=== PATIENT | female | born 1995 | race Caucasian/White ===

== ENCOUNTER → 2017-02-08 | Outpatient (CLI) | payer BC ==
[~2017-02-08] MED LIST: FRRS300 PO; PRENTAB26 PO
[2017-02-11 23:54] LABS: CHLAMYDIA TRACH RNA*** NOT DETECTED (NOT DETECTED); GC (NEIS GONORRHOEAE)RNA** NOT DETECTED (NOT DETECTED)
== END | disposition home or self-care (01) ==
LOC: C.LABSPEC 17:35
PROVIDERS: ATTEND Obstetrics & Gynecology
DX: Z01.419 Encounter for gynecological examination (general) (routine) without abnormal findings (principal)

== ENCOUNTER → 2017-09-25 | Outpatient (CLI) | payer BC ==
[2017-09-25 14:28] LABS: BASO % 0.2 %; BASO ABS # 0.01 K/uL (0-0.2); COMPLETE YES; EOS % 0.7 %; HEMATOCRIT 35.8 % (37-47); IG% 0.2 %; LYMPH % 29.8 %; MEAN CELL VOLUME 86.9 fL (80-100); MEAN CORPUSCULAR HEMOGLOBIN 28.4 pg (25-34); MEAN CORPUSCULAR HGB CONC 32.7 g/dl (32-36); MEAN PLATELET VOLUME 11.4 fL (7.4-10.4); MONO % 6.3 %; NEUT % 62.8 %; PLATELET COUNT 163 K/uL (130-400); RED BLOOD COUNT 4.12 M/uL (4.2-5.4)
[2017-09-25 18:14] LABS: URINE APPEARANCE CLOUDY (CLEAR); URINE BILIRUBIN NEG (NEG); URINE COLOR YELLOW; URINE EPITHELIAL CELL AUTO 20-30 /lpf (0-5); URINE NITRITE NEG (NEG); URINE PH 7.5 (4.5-7.5); URINE SPECIFIC GRAVITY 1.014 (1.000-1.030); UROBILINOGEN NEG (NEG)
[2017-09-25 18:15] LABS: MANUAL MICROSCOPIC REQUIRED? NO; REVIEW REQ? NO
[2017-09-28 01:17] LABS: CHLAMYDIA TRACH RNA*** NOT DETECTED (NOT DETECTED); GC (NEIS GONORRHOEAE)RNA** NOT DETECTED (NOT DETECTED)
== END | disposition home or self-care (01) ==
LOC: C.LAB1850 12:38
PROVIDERS: ATTEND Obstetrics & Gynecology
DX: Z34.81 Encounter for supervision of other normal pregnancy, first trimester (principal)

== ENCOUNTER → 2017-11-11 | Outpatient (CLI) | payer BC | END | disposition home or self-care (01) | LOC: C.LAB1850 13:08 | PROVIDERS: ATTEND Obstetrics & Gynecology | DX: Z34.82 Encounter for supervision of other normal pregnancy, second trimester (principal) ==

== ENCOUNTER → 2017-11-21 | Outpatient (CLI) | payer BC | END | disposition home or self-care (01) | LOC: C.LAB1850 08:59 | PROVIDERS: ATTEND Obstetrics & Gynecology | DX: O28.1 Abnormal biochemical finding on antenatal screening of mother (principal); Z3A.00 Weeks of gestation of pregnancy not specified ==

== ENCOUNTER → 2018-02-05 | Outpatient (CLI) | payer BC ==
[2018-02-05 09:35] LABS: HEMATOCRIT 28.9 % (37-47); HEMOGLOBIN 9.8 g/dL (12.0-16.0)
== END | disposition home or self-care (01) ==
LOC: C.LAB1850 08:13
PROVIDERS: ATTEND Obstetrics & Gynecology
DX: Z34.83 Encounter for supervision of other normal pregnancy, third trimester (principal)

== ENCOUNTER → 2018-06-17 | Outpatient (CLI) | payer BC | END | disposition home or self-care (01) | LOC: C.PAPS 16:16 | PROVIDERS: ATTEND Obstetrics & Gynecology | DX: Z01.419 Encounter for gynecological examination (general) (routine) without abnormal findings (principal) ==

== ENCOUNTER 2022-08-24 07:36 | Inpatient (IN) ==
--- NOTE | 2022-08-24 07:46 | History & Physical Report ---
Date of Service August 24, 2022 Assessment & Plan (1) with 41 completed weeks gestation: Plan: Admit for IOL secondary to post dates. Miranda bulb placed last night and has fallen out. Epidural as desired. (2) Encounter for induction of labor: Admission and Anticipated Discharge Date Admission Date: August 24, 2022 History of Present Illness Chief Complaint: IOL Primary Care Provider: NO PCP Analisa is a 27 y/o female currently at 41 1/7 WGA with an AMANUEL 08/16/22 as determined by Ultrasound who is here for induction for post dates. Her was complicated by LGSIL on pap, colpo was done and was negative. Miranda bulb placed last night and has fallen out. Irregular contractions; + movement; no fluid loss; no bloody show External FHT and external uterine monitors used; Category 1 tracing; moderate FHT variability. Had regular appointments with OB. Labs: (01/04/22) Blood type: O+ Antibody screen: Negative H.8 (today) Hct: 34.5 (today) WBC: 6.65 (today) Plt: 118 (today) Rubella: Immune VDRL/RPR: nonreactive Gonorrhea: Neg Chlamydia: Neg HIV: Neg HbSAg: Neg GBS: Neg Other screens: Declines cf/sma--mln Declines cfdna--mln Allergies Allergy/AdvReac Type Severity Reaction Status Date / Time grape Allergy Mild HIVES Verified 08/23/22 10:01 nitrofurantoin AdvReac Mild Rash Verified 08/23/22 10:01 Home Medications Medication Instructions Recorded Confirmed Type [id number] 3-fat com #1 27 cap PO 12/29/21 08/23/22 History mg-1 mg-300 mg capsule Patient History Medical History 6 weeks follow-up Cervical cancer screening Encounter for contraceptive management Galactorrhea not associated with childbirth History of varicella Ingrown toenail Intrauterine (08/08/11) 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 Surgical History No history of previous surgery Family History Grandmother (Paternal) Breast cancer Father Hypertension Denies family history of Ovarian cancer Colorectal cancer Social History Smoking Status: Never smoker Second Hand Exposure: No; Hx Alcohol Use: No Hx Substance Use: No Preferred Language: Bangladeshi Communication Ability: Effective 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 Denies breast pain. Denies dysuria. Denies headache or changes in vision. Physical Exam Physical Exam: General: Alert, oriented. No acute distress. Cardiac: Regular rate and rhythm, no murmurs/rubs/gallops. Respiratory: Clear to auscultation bilaterally a/p, no wheezes/rales/rhonchi. No increased work of breathing. Symmetrical chest rise. No respiratory distress. Abdomen: Gravid Pelvic: Dilation 4 1/2 cm; Effacement 75; Station -[address] Espinosa. Lower Extremities: No lower extremity edema or swelling. No deep calf pain. Laura's negative bilaterally Supervising Physician Co-Signing Physician Notes Resident Physician Supervision Note: I was present with Dr. Mitchell during the history and exam. I discussed the case with the resident and agree with the findings and plan as documented in the note. Any exceptions or clarifications are listed here: Patient her for po stdates induction. . Had miranda overnight. Cx 4.5cm per vern. fhts categ1. pitocin infusion, arom by me, clear fluid, cx unchanged. epidural when desires. Documented By: Kelsi Lange MD, FACOG
[2022-08-24] MEDS ORDERED: LIDOCAINE 1% LOCAL 20 ML VIAL INFIL PRN (07:47)
[2022-08-24] MEDS ORDERED: OXYTOCIN 30 UNITS/500 ML BAG IV PRN ×3 (07:47→14:30)
[2022-08-24 08:09] LABS: Hematocrit (blood only) 34.5 % (34.1-44.9); Hemoglobin 11.8 g/dl (12.0-16.0); Mean Corpuscular Hemoglobin 30.2 pg (25.0-34.0); Mean Corpuscular Hgb Conc 34.2 g/dL (32.0-36.0); Mean Corpuscular Volume 88.2 fL (80.0-100.0); Mean Platelet Volume 12.6 fL (9.4-12.3); Platelet Count 118 K/uL (130-400); RDW Coefficient of Variation 13.5 % (11.5-14.5); RDW Standard Deviation 43.1 fL (36.4-46.3); Red Blood Count 3.91 M/uL (3.93-5.22); White Blood Count 6.65 K/ul (4.8-10.8)
[2022-08-24] MEDS: LACTATED RINGER'S 1,000 ML IV PRN ×2 (08:30→11:55)
[2022-08-24] MEDS ORDERED: ePHEDrine sulfate 50 MG/ML AMP ONE (11:14)
[2022-08-24] MEDS ORDERED: fentaNYL 2MCG/ML ROPIVACAINE 1.25MG/ML 100 ML BAG EPI ONE (11:15)
[2022-08-24] MEDS ORDERED: fentaNYL citrate 100 MCG/2 ML VIAL ONE ×2 (11:15→14:19)
[2022-08-24] MEDS ORDERED: LIDOCAINE 2%/EPINEPHRINE 1:200,000 20 ML SDV ONE (11:15)
[2022-08-24] MEDS ORDERED: SODIUM CHLORIDE 0.9% INJ 10 ML VIAL ONE (11:15)
[2022-08-24] MEDS ORDERED: BUPIVACAINE 0.25% 30 ML VIAL ONE (11:15)
--- NOTE | 2022-08-24 12:18 | Anesthesiology Consultation ---
Date of Service August 24, 2022 Assessment & Plan Chart Review Chart Review: Acceptable Risk for Labor Epidural Consults Requested none History Height/Weight Height: 5 ft 3 in Weight: 67.132 kg Allergies Allergy/AdvReac Type Severity Reaction Status Date / Time grape Allergy Mild HIVES Verified 08/23/22 10:01 nitrofurantoin AdvReac Mild Rash Verified 08/23/22 10:01 Medications Home Medications Medication Instructions Recorded Confirmed Last Taken [id number] 3-fat com #1 27 cap PO 12/29/21 08/23/22 08/24/22 mg-1 mg-300 mg capsule Active Medications Generic Name Dose Route Start Last Admin Trade Name Freq PRN Reason Stop Dose Admin Oxytocin 30 units in 500 mls @ 7 mls/hr 08/24/22 07:48 08/24/22 10:51 Pitocin IV 08/26/22 07:47 0.42 units/hr .Q24H PRN 7 mls/hr Labor Induction/Augmentation Titration Protocol 0.42 UNITS/HR Lactated Ringer's 1,000 mls @ 125 mls/hr 08/24/22 07:47 08/24/22 11:55 Lr IV 08/26/22 07:46 125 mls/hr .Q8H PRN Administration L&D Protocol Protocol Past Medical History Medical History 6 weeks follow-up Cervical cancer screening Encounter for contraceptive management Galactorrhea not associated with childbirth History of varicella Ingrown toenail Intrauterine (08/08/11) 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
[2022-08-24] MEDS ORDERED: NALOXONE HCL 1 MG in SODIUM CHLORIDE 0.9% 1000ML 1,000 ML IV PRN (12:21)
[2022-08-24] MEDS ORDERED: NALBUPHINE HCL INJ 10 MG/ML AMP IV PRN (12:21)
[2022-08-24] MEDS ORDERED: ePHEDrine sulfate 50 MG/ML AMP IV PRN (12:21)
[2022-08-24] MEDS ORDERED: diphenhydrAMINE 50 MG/ML VIAL IV PRN (12:21)
[2022-08-24] MEDS ORDERED: NALOXONE HCL 0.4 MG/1 ML VIAL/CARP IV PRN (12:21)
[2022-08-24] MEDS ORDERED: fentaNYL 2MCG/ML ROPIVACAINE 1.25MG/ML 100 ML BAG EPI PRN (12:21)
--- NOTE | 2022-08-24 12:47 | Labor Progress Brief Note ---
Date of Service August 24, 2022 Subjective some pressure, feels less now with epidural Assessment & Plan (1) Encounter for induction of labor: (2) with 41 completed weeks gestation: Plan good cx change. c/w pit. fhts categ 2. spont accels. Admission and Anticipated Discharge Date Admission Date: August 24, 2022 Physical Exam Constitutional: WD/WN, vitals as above Genitourinary: Manual OB Exam: + cervical dilation 7 cm, + cervical effacement 100% and + station 0 OB Exam Monitor Tracing: + external FHT monitor used, + external uterine monitor used (q2), + category II, + normal FHT variability and + variable decelerations Results & Data ([facility]) Vital Signs (Past 12 Hours) Vital Signs Temp Pulse Resp BP Pulse Ox 08/24/22 08:03 97.5 F L 71 16 124/84 08/24/22 12:41 61 08/24/22 12:41 108/70 08/24/22 12:37 100 08/24/22 12:37 67 08/24/22 12:38 61 08/24/22 12:38 121/73 08/24/22 12:32 100 08/24/22 12:32 58 L 08/24/22 12:32 113/68 08/24/22 12:27 100 08/24/22 12:27 66 08/24/22 12:26 71 08/24/22 12:26 115/65 08/24/22 12:23 67 08/24/22 12:23 103/67 08/24/22 12:22 100 08/24/22 12:22 66 08/24/22 12:22 69 08/24/22 12:22 111/68 08/24/22 12:19 64 08/24/22 12:19 107/67 08/24/22 12:17 100 08/24/22 12:17 75 08/24/22 12:17 105/66 08/24/22 12:15 67 08/24/22 12:15 111/66 08/24/22 12:13 66 08/24/22 12:13 112/68 08/24/22 12:12 100 08/24/22 12:12 68 08/24/22 12:11 68 08/24/22 12:11 115/69 08/24/22 12:10 82 08/24/22 12:10 116/64 08/24/22 12:09 92 08/24/22 12:09 86 08/24/22 12:07 97 08/24/22 12:07 79 08/24/22 12:06 65 08/24/22 12:06 133/69 08/24/22 12:04 71 08/24/22 12:04 141/71 H 08/24/22 12:02 100 08/24/22 12:02 69 08/24/22 12:02 71 08/24/22 12:02 135/77 08/24/22 12:00 71 08/24/22 12:00 148/79 H 08/24/22 11:57 100 08/24/22 11:57 67 08/24/22 11:52 100 08/24/22 11:52 72 08/24/22 11:47 100 08/24/22 11:47 68 08/24/22 11:42 100 08/24/22 11:42 63 08/24/22 11:37 100 08/24/22 11:37 70 08/24/22 11:32 100 08/24/22 11:32 65 08/24/22 11:27 100 08/24/22 11:27 63 08/24/22 11:22 100 08/24/22 11:22 64 08/24/22 11:17 100 08/24/22 11:17 61 08/24/22 11:16 67 08/24/22 11:16 137/92 08/24/22 07:53 71 124/84 Coding Level of Care Code None Diagnoses Encounter for induction of labor Z34.90 with 41 completed weeks gestation O48.0; Z3A.41
--- NOTE | 2022-08-24 13:16 | Delivery Summary ---
Vaginal Delivery Summary Date of Service August 24, 2022 Vaginal Delivery Summary The patient dilated to complete and pushed to deliver a viable female infant Apgars 9 and 9 via over intact perineum. Mouth and nose bulb suctioned at perineum. Loose nuchal x 1 reduced. Shoulders and body delivered with ease. was vigorous and crying at . Cord clamped at 30 seconds of life and infant to maternal abdomen where the cord was then doubly clamped and cut. Placenta delivered spontaneously and intact, three-vessel cord. Hemostasis achieved with dilute pitocin and uterine massage. Cervix and sulci intact. EBL 300 cc. Mother and baby stable in recovery. [facility] Vaginal Delivery Charge Delivery Type Details:
--- NOTE | 2022-08-24 14:28 | Anesthesia Procedure Note ---
Date of Service August 24, 2022 Anesthesia Post Epidural Note Vital Signs Vital Signs: Temp Pulse Resp BP Pulse Ox 36.6 C 62 16 137/84 100 08/24/22 12:42 08/24/22 14:12 08/24/22 08:03 08/24/22 14:12 08/24/22 13:07 Pain Intensity Lower Medial Abdomen: Pain Intensity: 5 Notes Mental Status: alert / awake / arousable Nausea / Vomiting: adequately controlled Pain: adequately controlled Airway Patency, RR, SpO2: stable & adequate BP & HR: stable & adequate Hydration State: stable & adequate Neuraxial Anesthesia: was administered and sensory block is resolving Anesthetic Complications: no major complications apparent and Pt Satisfied with anesthetic care Epidural: Removed without complications and With tip intact
[2022-08-24] MEDS ORDERED: IBUPROFEN 600 MG TAB PO PRN (14:30)
[2022-08-24] MEDS ORDERED: DIPHTHERIA/TETANUS/PERTUSSIS 0.5 ML SYR/VIAL IM ONE (14:30)
[2022-08-24] MEDS ORDERED: oxyCODONE/ACETAMINOPHEN 5mg/325mg TAB PO PRN (14:30)
[2022-08-24] MEDS ORDERED: BENZOCAINE 20% AER SPR 82.5 GM CAN EXT PRN (14:30)
[2022-08-24] MEDS ORDERED: OXYTOCIN 20 UNITS in LACTATED RINGER'S 1,000 ML IV SCH (14:30)
[2022-08-24] MEDS ORDERED: ACETAMINOPHEN 325 MG TAB PO PRN (14:30)
[2022-08-24] MEDS ORDERED: HYDROCORTISONE ACETATE 25 MG SUPP PR PRN (14:30)
[2022-08-24] MEDS: DOCUSATE SODIUM 100 MG CAP PO SCH (20:58)
--- NOTE | 2022-08-25 05:47 | Obstetrical Progress Note ---
Date of Service August 25, 2022 Assessment & Plan (1) Vaginal delivery: Plan doing well stable, desires dc home later today, breast, rhpos, ri. instructions reveiwed Subjective Ambulation: ambulating normally Voiding: no voiding problems Diet Tolerance:: regular diet Lochia:: Moderate Feeding Type:: breast feeding cramps with feeding. no other complaints. using heating pad Constitutional: + as per Subjective / HPI Physical Exam Constitutional WD/WN, vitals as above Respiratory normal respiratory effort, lungs clear to auscultation Cardiovascular Rate/Rhythm: regular rate and regular rhythm Gastrointestinal (Abdomen) Inspection/Auscultation: abdomen normal to inspection Percussion/Palpation: abdomen soft Fundus firm 1-2cm down Musculoskeletal nt calves no edema Neurologic grossly normal Psychiatric A+Ox3, euthymic affect Results & Data ([facility]) Vital Signs (Past 12 Hours) Vital Signs Temp Pulse Resp BP Pulse Ox O2 Del Method 08/24/22 23:55 98.1 F 61 16 121/74 98 Room Air 08/25/22 03:06 98.1 F 66 16 113/74 98 Room Air 08/24/22 20:30 98.1 F 65 16 130/78 97 Room Air
[2022-08-25] MEDS ORDERED: PRENATAL VITAMIN 1 TAB PO SCH (08:00)
[2022-08-25] MEDS: DOCUSATE SODIUM 100 MG CAP PO SCH (08:15)
== END 2022-08-25 15:00 | disposition home or self-care (01) | DRG 807 ==
LOC: 4S1 07:36 → 4E2 15:30